=== PATIENT | female | born 1985 | race African-American/Black ===

== ENCOUNTER 2018-11-17 20:25 | Emergency (ER) | payer OTHER ==
[~2018-11-17] VITALS: Ht 154.9 cm; Wt 86.2 kg
[~2018-11-17 20:25] MED LIST: APAP500 PO; ATIVAN0.5 MG PO; IBUPROFEN 600600 M1 PO; MACROBID 100 M100 M1 PO; NO HOME MEDS; NOHOMEMEDICATIONS; NORCO 5-325 TA1 EACH PO; PENICILLIN V P500 MG PO; PERCOCET 5-3251 EACH PO
[2018-11-17] MEDS ORDERED: SENNA-DOCUSATE1 EAC1 PO (21:22)
[2018-11-17] MEDS ORDERED: FLEXERIL PO (21:22)
[2018-11-17] MEDS ORDERED: NORCO 5-325 TA1 EAC1 PO (21:22)
[2018-11-17 21:57] VITALS: BP 113/68
== END 2018-11-17 22:19 | disposition home or self-care (01) ==
LOC: ER 20:25
DX: S39.012A Strain of muscle, fascia and tendon of lower back, initial encounter (principal); S29.012A Strain of muscle and tendon of back wall of thorax, initial encounter; Z87.891 Personal history of nicotine dependence; V89.2XXA Person injured in unspecified motor-vehicle accident, traffic, initial encounter; Y93.89 Activity, other specified; Y92.89 Other specified places as the place of occurrence of the external cause; Y99.8 Other external cause status